=== PATIENT | male | born 2000 | race Caucasian/White ===

== ENCOUNTER 2023-05-29 01:44 | Emergency (ER) | payer BC, OTHER ==
[2023-05-29] MEDS ORDERED: LACTATED RINGERS 1,000 ML 1,000 ML IV ONE (02:00)
[2023-05-29] MEDS ORDERED: ONDANSETRON INJECTION 4 MG/2 ML (SDV) IVP ONE (02:00)
--- NOTE | 2023-05-29 02:04 | ED General ---
General Stated Complaint: ETOH Source of Information: Patient (PT NOT ABLE TO GIVE ANY SIGNIFICANT INFORMATION DUE TO INTOXICATION), EMS Exam Limitations: Intoxication History of Present Illness Date Seen by Provider: May 29, 2023 Time Seen by Provider: 01:43 Initial Comments PT ARRIVES VIA EMS EMS REPORT THAT PT WAS BEEN REPORTEDLY AT [address] TONIGHT, AND PT HAS BEEN DRINKING AN UNKNOWN AMOUNT OF RED BULL AND VODKA--FRIEND AT THE SCENE REPORTED THIS TO EMS PT WAS NOT RESPONDING WHILE IN VEHICLE, AND FRIEND CALLED PT'S DAD DAD REMOVED PT FROM THE VEHICLE AND LAID HIM ON THE GROUND THERE IS NO REPORTED INJURY ACCUCHECK 113 BY EMS ON ARRIVAL, PT ROUSES BRIEFLY TO VERBAL AND TACTILE STIMULI, AND IS DRY HEAVING. Allergies and Home Medications Allergies Coded Allergies: No Known Drug Allergies (Unverified , 05/29/23) Patient Home Medication List Home Medication List Reviewed: Yes Review of Systems Review of Systems Constitutional: see HPI Psychiatric/Neurological: See HPI Physical Exam Vital Signs Capillary Refill : Height, Weight, BMI Height: '" Weight: lbs. oz. kg; BMI Method: General Appearance: WD/WN, Other (REEKS OF ALCOHOL. MENTATION/BEHAVIOR NOTED ABOVE; SHIVERING AND C/O BEING COLD. ( VERY COLD OUTSIDE TONIGHT ) ) HEENT: PERRL/EOMI (PUPILS SLUGGISH, BUT EQUAL, 5-6 MM) Neck: Normal Inspection Respiratory: Normal Breath Sounds, No Accessory Muscle Use, No Respiratory Distress Cardiovascular: Regular Rate, Rhythm, No Murmur Gastrointestinal: Non Tender, Soft Neurologic/Psychiatric: No Motor/Sensory Deficits (MOVES ALL EXTREMITIES), Other (MENTATION NOTED ABOVE) Skin: Normal Color, Warm/Dry, Other (NO EXTERNAL EVIDENCE OF TRAUMA) Progress/Results/Core Measures Suspected Sepsis SIRS Temperature: Pulse: Respiratory Rate: Laboratory Tests 05/29/23 01:57: White Blood Count 8.5 Blood Pressure / Mean: Laboratory Tests 05/29/23 01:57: Creatinine 1.16, Platelet Count 263, Total Bilirubin 1.5H Results/Orders Lab Results Laboratory Tests Test 05/29/23 01:57 Range/Units White Blood Count 8.5 4.3-11.0 10^3/uL Red Blood Count 4.76 4.30-5.52 10^6/uL Hemoglobin 15.4 13.3-17.7 g/dL Hematocrit 43 40-54 % Mean Corpuscular Volume 90 80-99 fL Mean Corpuscular Hemoglobin 32 25-34 pg Mean Corpuscular Hemoglobin Concent 36 32-36 g/dL Red Cell Distribution Width 12.3 10.0-14.5 % Platelet Count 263 130-400 10^3/uL Mean Platelet Volume 8.6 L 9.0-12.2 fL Immature Granulocyte % (Auto) 0 % Neutrophils (%) (Auto) 59 42-75 % Lymphocytes (%) (Auto) 34 12-44 % Monocytes (%) (Auto) 5 0-12 % Eosinophils (%) (Auto) 1 0-10 % Basophils (%) (Auto) 1 0-10 % Neutrophils # (Auto) 5.1 1.8-7.8 10^3/uL Lymphocytes # (Auto) 2.9 1.0-4.0 10^3/uL Monocytes # (Auto) 0.4 0.0-1.0 10^3/uL Eosinophils # (Auto) 0.1 0.0-0.3 10^3/uL Basophils # (Auto) 0.1 0.0-0.1 10^3/uL Immature Granulocyte # (Auto) 0.0 0.0-0.1 10^3/uL Sodium Level 141 135-145 MMOL/L Potassium Level 4.4 3.6-5.0 MMOL/L Chloride Level 106 98-107 MMOL/L Carbon Dioxide Level 20 L 21-32 MMOL/L Anion Gap 15 H 5-14 MMOL/L Blood Urea Nitrogen 13 7-18 MG/DL Creatinine 1.16 0.60-1.30 MG/DL Estimat Glomerular Filtration Rate 91 BUN/Creatinine Ratio 11 Glucose Level 115 H 70-105 MG/DL Calcium Level 8.9 8.5-10.1 MG/DL Corrected Calcium 8.5-10.1 MG/DL Total Bilirubin 1.5 H 0.1-1.0 MG/DL Aspartate Amino Transf (AST/SGOT) 30 5-34 U/L Alanine Aminotransferase (ALT/SGPT) 22 0-55 U/L Alkaline Phosphatase 64 40-136 U/L Total Protein 8.0 6.4-8.2 GM/DL Albumin 5.1 H 3.2-4.5 GM/DL Amylase Level 123 25-125 U/L Lipase 88 H 8-78 U/L Serum Alcohol 223 H <10 MG/DL My Orders Orders - ALDAIR ABERNATHY DO Ondansetron Injection (Ondansetron Inj (05/29/23 02:00) Ed Iv/Invasive Line Start (05/29/23 01:50) Monitor-Rhythm Ecg Trace Only (05/29/23 01:50) Alcohol (05/29/23 01:50) Amylase (05/29/23 01:50) Cbc And Automated Diff (05/29/23 01:50) Comprehensive Metabolic Panel (05/29/23 01:50) Drug Screen Stat (Urine) (05/29/23 01:50) Lipase (05/29/23 01:50) Ua Culture If Indicated (05/29/23 01:50) Ed Iv/Invasive Line Start (05/29/23 01:50) Lactated Ringers 1,000 Ml (Lactated Ring (05/29/23 02:00) Medications Given in ED Current Medications Medications Dose Ordered Sig/Heena Route Start Time Stop Time Status Last Admin Dose Admin Ondansetron HCl 8 mg ONCE ONCE IVP 05/29/23 02:00 05/29/23 02:01 DC 05/29/23 02:01 8 MG Vital Signs/I&O Capillary Refill : Progress Note : Progress Note VITALS ON ARRIVAL: GIVEN: -WARM IV FLUIDS -ZOFRAN LABS: -CBC NORMAL -CMP BILI 1.5, LIPASE 88, OTHERWISE UNREMARKABLE -ETOH 233 -UDS SHORTLY AFTER ARRIVAL, PT IS MORE RESPONSIVE, IS AWAKE, LOOKING AROUND, MUMBLES A FEW ANSWERS APPROPRIATELY ORIENTED TO PERSON, ABLE TO STATE NAME AND AGE. GIVEN WARM BLANKETS AND SHIVERING STOPPED. 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 [id number]--PARENTS NOW IN ROOM WITH PT. DAD STATES HE DRINKS EVERY WEEKEND, BUT NOT EVER BEEN THIS INTOXICATED BEFORE-TO THEIR KNOWLEDGE THEY REPORT THAT PT AND GIRLFRIEND BROKE UP TONIGHT. NO DETERIORATION IN PT'S CONDITION DURING ER STAY 0230--PT HAS PULLED OUT IV, PT IS NOW VERY AWAKE, SPEECH IS CLEAR, HOSTILE, AND WANTS TO GO HOME --PARENTS REPORT THIS IS HIS TYPICAL BEHAVIOR WHEN HE DRINKS--GETS VERY ANGRY/HOSTILE, ETC. WHEN HE DRINKS PT IS YELLING AND BELLIGERENT HE IS LEAVING. GAIT STEADY AT DISMISSAL PT WOULD NOT GIVE URINE SPECIMEN DISCUSSED TEST RESULTS, ANTICIPATED COURSE, SYMPTOMATIC TREATMENT, NEED FOR FOLLOW UP AND RETURN PRECAUTIONS. Departure Impression Primary Impression: Alcohol intoxication Disposition: 01 HOME, SELF-CARE Condition: Improved Departure-Patient Inst. Decision time for Depature: 02:33 Referrals: NO,LOCAL PHYSICIAN (PCP) Primary Care Physician Patient Instructions: Alcohol Intoxication ED Add. Discharge Instructions: NO ALCOHOL LOTS OF CLEAR LIQUIDS, ESPECIALLY WATER AND GATORADE TYLENOL AND MOTRIN FOR PAIN FOLLOW UP WITH DR OF CHOICE NEEDED, RETURN TO ER IF SYMPTOMS WORSEN ALDAIR ABERNATHY DO May 29, 2023 02:04
[2023-05-29 02:05] LABS: BASOPHILS # (AUTO) 0.1 10^3/uL (0.0-0.1); BASOPHILS % (AUTO) 1 % (0-10); EOSINOPHILS # (AUTO) 0.1 10^3/uL (0.0-0.3); EOSINOPHILS % (AUTO) 1 % (0-10); HEMATOCRIT 43 % (40-54); HEMOGLOBIN 15.4 g/dL (13.3-17.7); LYMPHOCYTES # (AUTO) 2.9 10^3/uL (1.0-4.0); LYMPHOCYTES % (AUTO) 34 % (12-44); MEAN CORPUSCULAR HEMOGLOBIN 32 pg (25-34); MEAN CORPUSCULAR HGB CONC 36 g/dL (32-36); MEAN CORPUSCULAR VOLUME 90 fL (80-99); MEAN PLATELET VOLUME 8.6 fL (9.0-12.2); MONOCYTES # (AUTO) 0.4 10^3/uL (0.0-1.0); MONOCYTES % (AUTO) 5 % (0-12); NEUTROPHILS # (AUTO) 5.1 10^3/uL (1.8-7.8); NEUTROPHILS % (AUTO) 59 % (42-75); PLATELET COUNT 263 10^3/uL (130-400); WHITE BLOOD COUNT 8.5 10^3/uL (4.3-11.0)
[2023-05-29 02:16] LABS: ALBUMIN 5.1 GM/DL (3.2-4.5); CHLORIDE 106 MMOL/L (98-107); POTASSIUM 4.4 MMOL/L (3.6-5.0); SODIUM 141 MMOL/L (135-145)
[2023-05-29 02:17] LABS: AMYLASE 123 U/L (25-125); CALCIUM 8.9 MG/DL (8.5-10.1)
[2023-05-29 02:19] LABS: GLUCOSE 115 MG/DL (70-105)
[2023-05-29 02:20] LABS: BILIRUBIN,TOTAL 1.5 MG/DL (0.1-1.0); CARBON DIOXIDE 20 MMOL/L (21-32)
[2023-05-29 02:22] LABS: ALKALINE PHOSPHATASE 64 U/L (40-136); CREATININE SERUM 1.16 MG/DL (0.60-1.30); GFR ESTIMATED 91
[2023-05-29 02:23] LABS: BUN/CREATININE RATIO 11
[2023-05-29 02:25] LABS: ALANINE AMINOTRANSFERASE 22 U/L (0-55)
[2023-05-29 02:26] LABS: LIPASE 88 U/L (8-78)
[2023-05-29 02:36] VITALS: BP 144/96
== END 2023-05-29 02:36 | disposition home or self-care (01) ==
LOC: ER 01:51
DX: F10.129 Alcohol abuse with intoxication, unspecified (principal); Y90.7 Blood alcohol level of 200-239 mg/100 ml
CPT/HCPCS: 36415; 80053; 80320; 82150; 83690; 85025